=== PATIENT | female | born 1950 | race Native Hawaiian/Other Pacific Islander ===

== ENCOUNTER 2020-03-21 13:32 | Outpatient (CLI) | payer MEDICARE, SELFPAY | END 2020-03-21 13:33 | disposition home or self-care (01) | LOC: WOUND 13:34 | PROVIDERS: Family Provider Family Medicine; Visit Provider Nurse Practitioner Family | DX: I96 Gangrene, not elsewhere classified (principal); L89.312 Pressure ulcer of right buttock, stage 2 | CPT/HCPCS: 11042; 11045; 87070; 87077; 87176; 87186; 87205; G0463 ==

== ENCOUNTER 2020-04-04 13:26 | Outpatient (CLI) | payer MEDICARE, SELFPAY | END 2020-04-04 13:27 | disposition home or self-care (01) | LOC: WOUND 13:27 | PROVIDERS: Family Provider Family Medicine; Visit Provider Thoracic Surgery (Cardiothoracic Vascular Surgery) | DX: L89.892 Pressure ulcer of other site, stage 2 (principal) | CPT/HCPCS: 11042; 11045 ==

== ENCOUNTER 2020-04-13 14:51 | Outpatient (CLI) | payer MEDICARE, SELFPAY | END 2020-04-13 14:52 | disposition home or self-care (01) | LOC: WOUND 14:51 | PROVIDERS: Family Provider Family Medicine; Visit Provider Thoracic Surgery (Cardiothoracic Vascular Surgery) | DX: L89.892 Pressure ulcer of other site, stage 2 (principal) | CPT/HCPCS: 11042; 11045 ==

== ENCOUNTER 2020-04-27 13:40 | Outpatient (CLI) | payer MEDICARE, SELFPAY | END 2020-04-27 13:41 | disposition home or self-care (01) | LOC: WOUND 13:44 | PROVIDERS: Family Provider Family Medicine; Visit Provider Nurse Practitioner Family | DX: I96 Gangrene, not elsewhere classified (principal); L89.892 Pressure ulcer of other site, stage 2 | CPT/HCPCS: 11042; 11045 ==

== ENCOUNTER 2020-05-18 13:46 | Outpatient (CLI) | payer MEDICARE, SELFPAY | END 2020-05-18 13:47 | disposition home or self-care (01) | LOC: WOUND 13:47 | PROVIDERS: Family Provider Family Medicine; Visit Provider Thoracic Surgery (Cardiothoracic Vascular Surgery) | DX: I96 Gangrene, not elsewhere classified (principal); L89.892 Pressure ulcer of other site, stage 2 | CPT/HCPCS: 11042; 11045 ==

== ENCOUNTER 2020-06-22 14:39 | Outpatient (CLI) | payer MEDICARE, SELFPAY | END 2020-06-22 14:40 | disposition home or self-care (01) | LOC: WOUND 14:40 | PROVIDERS: Family Provider Family Medicine; Visit Provider Thoracic Surgery (Cardiothoracic Vascular Surgery) | DX: L89.892 Pressure ulcer of other site, stage 2 (principal) | CPT/HCPCS: 11042 ==

== ENCOUNTER 2021-01-31 13:52 | Outpatient (CLI) | payer MEDICARE, SELFPAY ==
[2021-01-31 14:28] LABS: Basophils # 0.1 10^3/uL (0.0-0.1); Basophils % 0.5 %; Eosinophils # 0.2 10^3/uL (0.0-0.8); Eosinophils % 1.8 %; Hemoglobin 11.4 g/dL (11.5-15.3); Lymphocytes # 2.6 10^3/uL (0.8-4.8); Lymphocytes % 24.1 %; Mean Corpuscular HGB Conc 30.8 g/dL (30.0-36.0); Mean Corpuscular Hemoglobin 27.3 pg (28.0-34.0); Mean Corpuscular Volume 88.7 fl (81-99); Mean Platelet Volume 11.1 fL (7.4-10.4); Monocytes # 0.9 10^3/uL (0.2-0.9); Monocytes % 8.2 %; Neutrophils # 7.12 10^3/uL (1.8-7.7); Neutrophils % 65.1 %; Nucleated Red Blood Cells % 0 %; Platelet Count 261 10^3/cmm (130-400); Red Blood Count 4.17 10^6/uL (4.1-5.3); Red Cell Distribution Width 15.4 % (12.1-15.1); White Blood Count 10.9 10^3/uL (4.0-10.0)
[2021-01-31 14:37] LABS: Alanine Aminotransferase 8 U/L (0-33); Albumin Level 3.9 g/dL (3.5-5.2); Alkaline Phosphatase 105 IU/L (35-105); Aspartate Amino Transferase 11 U/L (0-32); Blood Urea Nitrogen 8 mg/dL (8-23); Calcium 8.9 mg/dL (8.5-10.5); Carbon Dioxide 26 mmol/L (22-29); Chloride 104 mmol/L (98-107); Glomerular Filtration Rate 98.8 mL/min (90-130); Glucose 113 mg/dL (65-115); Iron 35 ug/dL (37-145); Osmolality Calculated 287 mOsm/kg (285-295); Sodium 139 mmol/L (136-145); Total Bilirubin 0.3 mg/dL (0.15-1.2); Total Protein 6.9 g/dL (6.6-8.7)
[2021-01-31 15:05] LABS: Creatinine Urine, Random 61 mg/dL (28-217)
[2021-01-31 15:07] LABS: Microalbum Creatinine Ratio Ur 16 mg/dL (0-20); Microalbumin Random Urine < 1 ug/dL (0-20)
== END 2021-01-31 13:53 | disposition home or self-care (01) ==
PROVIDERS: Visit Provider Family Medicine
DX: I10 Essential (primary) hypertension (principal); E61.1 Iron deficiency
CPT/HCPCS: 80053; 82044; 83540; 85025

== ENCOUNTER → 2021-11-01 09:51 | Outpatient (BNVA) | payer MEDICARE, SELFPAY | PROVIDERS: Visit Provider Family Medicine | DX: G47.00 Insomnia, unspecified (principal); D64.9 Anemia, unspecified | CPT/HCPCS: 80053; 80061; 82306; 82607; 84443; 85025 ==

== ENCOUNTER 2022-02-02 11:26 | Emergency (ER) | payer MEDICARE, SELFPAY ==
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
[2022-02-02 11:38] VITALS: BP 140/65; PULSE 110; RESP 16; TEMP 36.8; O2SAT 95; BMI 36.6
--- NOTE | 2022-02-02 11:39 | XRR_ITS ---
PROCEDURE INFORMATION: Exam: XR Pelvis Exam date and time: 02/02/2022 11:46 AM Age: 72 years old Clinical indication: Pelvic pain TECHNIQUE: Imaging protocol: Radiologic exam of the pelvis. Views: 1 or 2 view. COMPARISON: CT kidney stone [id number] 02/05/2017 9:41 PM FINDINGS: Bones/joints: There degenerative changes in the visualized lower lumbar spine. Small marginal osteophytes are present across the hip joints. Mild degenerative changes extend across the sacroiliac joints and pubic symphysis. No acute fracture. Soft tissues: Unremarkable. XR/XR pelvis 1-2V* [id number] IMPRESSION: No acute findings.
[2022-02-02 12:38] VITALS: BP 129/62; PULSE 104; RESP 14; O2SAT 95
== END 2022-02-02 13:02 | disposition home or self-care (01) ==
PROVIDERS: Emergency Provider Emergency Medicine; PCP Family Medicine
DX: S31.809A Unspecified open wound of unspecified buttock, initial encounter (principal); W19.XXXA Unspecified fall, initial encounter
CPT/HCPCS: 72170; 99283